=== PATIENT | female | born 1970 | race Asian ===

== ENCOUNTER → 2019-03-20 | Outpatient (CLI) | payer OTHER ==
--- NOTE | 2019-03-21 09:51 | RADIOLOGY IMAGING REPORT ---
FACILITY: [facility] [place] PATIENT NAME: CHRISTIAN QUINTERO : [id number] MR: [id number] V: [id number] EXAM DATE: ORDERING PHYSICIAN: MARCELA COTTON TECHNOLOGIST: Brenda Gunter PROCEDURE: BILATERAL DIGITAL SCREENING MAMMOGRAM WITH CAD ASSISTED INTERPRETATION & 3D TOMOSYNTHESIS REASON FOR STUDY: Screening. FAMILY HISTORY OF BREAST CANCER: Maternal aunt in her 40's. BREAST PROCEDURES/TREATMENTS: Benign lumpectomy Right breast in 1996. COMPARISON: 07/14/17, 06/30/16, 06/25/15, 06/22/14, 08/01/12. VIEWS OBTAINED: Bilateral 2D & 3D full field CC & MLO projections. BREAST DENSITY: The breasts are heterogeneously dense which can obscure small masses. MAMMOGRAM FINDINGS: The parenchymal pattern has remained stable allowing for difference in mammographic technique & patient positioning. IMPRESSION: BIRADS 1: Negative. DIAGNOSTIC CATEGORY 1--NEGATIVE. RECOMMENDATIONS: ROUTINE MAMMOGRAM AND CLINICAL EVALUATION. Dictated by: Debora Raymundo M.D. on 03/20/2019 at 17:55 Transcribed by: TAYLOR on 03/21/2019 at 8:00 Approved by: Debora Raymundo M.D. on 03/21/2019 at 9:47 [facility]
== END ==
LOC: MAMO 08-10 00:19
PROVIDERS: ATTEND Family Medicine
DX: Z12.31 Encounter for screening mammogram for malignant neoplasm of breast (principal)
CPT/HCPCS: 77063; 77067